=== PATIENT | male | born 1990 | race Caucasian/White ===

== ENCOUNTER 2016-08-01 23:14 | Emergency (ER) | payer MEDICARE, OTHER | END 2016-08-02 00:39 | disposition home or self-care (01) | LOC: FER 23:14 | DX: S92.314A Nondisplaced fracture of first metatarsal bone, right foot, initial encounter for closed fracture (principal); F17.210 Nicotine dependence, cigarettes, uncomplicated; Z88.0 Allergy status to penicillin; W10.9XXA Fall (on) (from) unspecified stairs and steps, initial encounter; Y92.009 Unspecified place in unspecified non-institutional (private) residence as the place of occurrence of the external cause | CPT/HCPCS: 73630; 99283 ==

== ENCOUNTER 2020-02-14 10:41 | Emergency (ER) | payer OTHER ==
[~2020-02-14 10:41] MED LIST: MUCINEX 600MG600 MG PO; NAPROXEN500 MG PO; ZOFRAN4 MG PO
== END 2020-02-14 13:50 | disposition left against medical advice (07) ==
LOC: FER 10:41
DX: S30.810A Abrasion of lower back and pelvis, initial encounter (principal); S80.812A Abrasion, left lower leg, initial encounter; S80.811A Abrasion, right lower leg, initial encounter; F17.210 Nicotine dependence, cigarettes, uncomplicated; Z88.0 Allergy status to penicillin; V48.5XXA Car driver injured in noncollision transport accident in traffic accident, initial encounter; Y92.410 Unspecified street and highway as the place of occurrence of the external cause
CPT/HCPCS: 99283

== ENCOUNTER → 2020-11-01 | Day surgery (SDC) | payer OTHER ==
[~2020-11-01] MED LIST changes: +NORCO 5-325 TA1 EACH PO; +ONDANSETRON ODT4 MG PO
[2020-11-01 06:19] LABS: BASOPHIL 0.3 % (0-2); EOSINOPHIL 2.4 % (0-5); HCT 43.3 % (42.0-52.0); HGB 14.2 g/dl (13.2-18.0); LYMPHOCYTE 21.4 % (15-48); MCH 28.9 pg (25.0-31.0); MCHC 32.8 g/dL (32.0-36.0); MONOCYTE 8.8 % (0-12); MPV 8.9 fL (6.0-9.5); NEUTROPHIL 66.2 % (41-80); NRBC 0; PLT 303 K/uL (150-400); RBC 4.92 M/uL (4.70-6.00); RDW 11.8 % (11.5-14.0); WBC 9.1 K/uL (4.0-10.5)
[2020-11-01 06:40] LABS: ALBUMIN 3.3 g/dL (3.4-5.0); BILIRUBIN - TOTAL 0.3 mg/dL (0.2-1.0); CREATININE 0.69 mg/dL (0.67-1.17); GLOBULIN (CALCULATION) 4.2 g/dL; POTASSIUM 3.9 mmol/L (3.5-5.1); TOTAL PROTEIN 7.5 g/dL (6.4-8.2)
== END | disposition home or self-care (01) ==
LOC: FER 05:55 → FOR 08:37
PROVIDERS: Emergency Medicine
DX: K80.20 Calculus of gallbladder without cholecystitis without obstruction (principal); U07.1 COVID-19; R91.8 Other nonspecific abnormal finding of lung field
CPT/HCPCS: 36415; 80053; 83690; 85025; J2405; Q9967; U0002